=== PATIENT | female | born 1975 | race Caucasian/White ===

== ENCOUNTER 2016-12-30 22:02 | Emergency (ER) | payer OTHER ==
[~2016-12-30] VITALS: Ht 157.4 cm; Wt 52.2 kg
[~2016-12-30 22:02] MED LIST: AURALGAN 15 ML15 ML OT; AZITHROMYC200 MG/5 M PO; BACTRIM DS 8001 TA1 PO; CATAFLAM50 MG PO; DAYPRO600 M1 PO; DEPAKOTE250 MG PO; FLEXERIL10 MG PO; FLONASE ALLERG9.9 ML NS; GOOD NEIGHBOR P10 M1 PO; HYDROCHLOROTHIA25 MG PO; LISINOPRIL HCTZ1 TA1 PO; LISINOPRIL10 MG PO; METFORMIN500 MG PO; NAPROSYN500 MG PO; PROAIR RESPICL90 MCG IH; ROXICET 325 MG/55 ML PO; SINGULAIR10 MG PO; SLOW-K 8MEQ8 MEQ PO; TOBRADEX 0.1%-0.5 ML OPH; ULTRAM50 MG PO; VICODIN 5/500 505 MG PO; ZESTRIL20 MG PO; ZITHROMAX Z PA250 MG PO; ZOFRAN ODT4 MG SL
[2016-12-30] MEDS ORDERED: MEDROL DOSEPAK4 MG PO (23:49)
[2016-12-30] MEDS ORDERED: NORCO 5-325 TA1 EACH PO (23:49)
[2016-12-30] MEDS ORDERED: ROBAXIN500 M1 PO (23:49)
== END 2016-12-31 00:29 | disposition home or self-care (01) ==
LOC: ED 22:02
DX: M25.512 Pain in left shoulder (principal); M62.838 Other muscle spasm; F17.200 Nicotine dependence, unspecified, uncomplicated; Z90.710 Acquired absence of both cervix and uterus; Z79.899 Other long term (current) drug therapy; Z88.0 Allergy status to penicillin; Z88.5 Allergy status to narcotic agent

== ENCOUNTER 2017-03-03 11:56 | Emergency (ER) | payer OTHER ==
[~2017-03-03] VITALS: Ht 157.4 cm; Wt 52.2 kg
[~2017-03-03 11:56] MED LIST changes: +MEDROL DOSEPAK4 MG PO; +NORCO 5-325 TA1 EACH PO; +ROBAXIN500 M1 PO
[2017-03-03] MEDS ORDERED: SEPTDS PO (12:28)
== END 2017-03-03 12:30 | disposition home or self-care (01) ==
LOC: ED 11:56
DX: R59.1 Generalized enlarged lymph nodes (principal); F17.200 Nicotine dependence, unspecified, uncomplicated; F10.10 Alcohol abuse, uncomplicated; Z88.0 Allergy status to penicillin; Z88.6 Allergy status to analgesic agent; Z79.899 Other long term (current) drug therapy; Z90.710 Acquired absence of both cervix and uterus

== ENCOUNTER → 2017-04-03 | Outpatient (CLI) | payer OTHER ==
[~2017-04-03] MED LIST changes: +SEPTDS PO
== END | disposition home or self-care (01) ==
LOC: CT 03-21 11:00
DX: M54.2 Cervicalgia (principal); I10 Essential (primary) hypertension; E11.9 Type 2 diabetes mellitus without complications

== ENCOUNTER → 2017-04-17 | Outpatient (CLI) | payer OTHER | END | disposition home or self-care (01) | LOC: RAD 15:31 | DX: M19.012 Primary osteoarthritis, left shoulder (principal); M54.6 Pain in thoracic spine ==

== ENCOUNTER 2017-05-25 16:50 | Emergency (ER) | payer OTHER ==
[~2017-05-25] VITALS: Ht 157.4 cm; Wt 51.3 kg
[2017-05-25] MEDS ORDERED: MEDROL DOSEPAK4 MG PO (17:23)
[2017-05-25] MEDS ORDERED: CYCLOBENZAPRINE10 MG PO (17:23)
== END 2017-05-25 17:28 | disposition home or self-care (01) ==
LOC: ED 16:50
DX: M54.2 Cervicalgia (principal); F17.200 Nicotine dependence, unspecified, uncomplicated; F10.10 Alcohol abuse, uncomplicated; Z88.0 Allergy status to penicillin; Z88.6 Allergy status to analgesic agent; Z79.899 Other long term (current) drug therapy

== ENCOUNTER 2017-06-01 01:17 | Emergency (ER) | payer OTHER ==
[~2017-06-01] VITALS: Wt 49.9 kg
[~2017-06-01 01:17] MED LIST changes: +CYCLOBENZAPRINE10 MG PO
== END 2017-06-01 02:53 | disposition home or self-care (01) ==
LOC: ED 01:17
DX: J02.8 Acute pharyngitis due to other specified organisms (principal); F17.200 Nicotine dependence, unspecified, uncomplicated; Z88.0 Allergy status to penicillin; Z88.5 Allergy status to narcotic agent

== ENCOUNTER 2017-07-21 14:55 | Emergency (ER) | payer OTHER ==
[~2017-07-21] VITALS: Ht 157.4 cm; Wt 51.3 kg
== END 2017-07-21 15:44 | disposition left against medical advice (07) ==
LOC: ED 14:55
DX: S80.212A Abrasion, left knee, initial encounter (principal); R05 Cough; R09.81 Nasal congestion; Z23 Encounter for immunization; Z88.0 Allergy status to penicillin; Z88.6 Allergy status to analgesic agent; Z79.899 Other long term (current) drug therapy; W26.8XXA Contact with other sharp object(s), not elsewhere classified, initial encounter; Y93.89 Activity, other specified; Y92.89 Other specified places as the place of occurrence of the external cause; Y99.8 Other external cause status

== ENCOUNTER 2017-07-23 20:12 | Emergency (ER) | payer OTHER ==
[~2017-07-23] VITALS: Ht 157.4 cm; Wt 51.3 kg
[2017-07-23] MEDS ORDERED: DIFLUCAN150 MG PO (20:52)
== END 2017-07-23 20:57 | disposition home or self-care (01) ==
LOC: ED 20:12
DX: T19.2XXA Foreign body in vulva and vagina, initial encounter (principal); F17.200 Nicotine dependence, unspecified, uncomplicated; Z90.710 Acquired absence of both cervix and uterus; Z98.890 Other specified postprocedural states; Z88.0 Allergy status to penicillin; Z88.5 Allergy status to narcotic agent; Y92.9 Unspecified place or not applicable

== ENCOUNTER 2017-09-03 13:41 | Emergency (ER) | payer OTHER ==
[~2017-09-03] VITALS: Ht 157.4 cm; Wt 50.8 kg
[~2017-09-03 13:41] MED LIST changes: +DIFLUCAN150 MG PO
== END 2017-09-03 14:26 | disposition home or self-care (01) ==
LOC: ED 13:41
DX: T19.2XXA Foreign body in vulva and vagina, initial encounter (principal); Z90.710 Acquired absence of both cervix and uterus; Z79.899 Other long term (current) drug therapy; Z88.0 Allergy status to penicillin; Z88.5 Allergy status to narcotic agent; Y92.9 Unspecified place or not applicable

== ENCOUNTER 2017-09-10 02:40 | Emergency (ER) | payer OTHER ==
[~2017-09-10] VITALS: Ht 157.4 cm; Wt 49.9 kg
[2017-09-10] MEDS ORDERED: NAPROSYN500 MG PO (04:07)
== END 2017-09-10 04:35 | disposition home or self-care (01) ==
LOC: ED 02:40
DX: M25.572 Pain in left ankle and joints of left foot (principal); F17.200 Nicotine dependence, unspecified, uncomplicated; Z90.710 Acquired absence of both cervix and uterus; Z79.899 Other long term (current) drug therapy; Z88.0 Allergy status to penicillin; Z88.5 Allergy status to narcotic agent; X50.1XXA Overexertion from prolonged static or awkward postures, initial encounter; Y93.89 Activity, other specified; Y92.099 Unspecified place in other non-institutional residence as the place of occurrence of the external cause; Y99.9 Unspecified external cause status

== ENCOUNTER 2017-10-14 02:24 | Emergency (ER) | payer OTHER ==
[~2017-10-14] VITALS: Ht 157.4 cm; Wt 49.4 kg
== END 2017-10-14 03:07 | disposition home or self-care (01) ==
LOC: ED 02:24
DX: S62.102A Fracture of unspecified carpal bone, left wrist, initial encounter for closed fracture (principal); M67.432 Ganglion, left wrist; Z88.0 Allergy status to penicillin; Z88.6 Allergy status to analgesic agent; Z79.899 Other long term (current) drug therapy; X58.XXXA Exposure to other specified factors, initial encounter; Y93.89 Activity, other specified; Y92.89 Other specified places as the place of occurrence of the external cause; Y99.8 Other external cause status

== ENCOUNTER 2017-11-08 17:11 | Emergency (ER) | payer OTHER ==
[~2017-11-08] VITALS: Wt 56.7 kg
[2017-11-08 17:36] LABS: BILIRUBIN NEGATIVE (NEGATIVE); BLOOD NEGATIVE (NEGATIVE); CLARITY CLEAR (CLEAR); COLOR YELLOW (YELLOW); GLUCOSE NEGATIVE (NEGATIVE); KETONE NEGATIVE (NEGATIVE); LEUKO ESTERASE TRACE (NEGATIVE); NITRITE NEGATIVE (NEGATIVE); SPECIFIC GRAVITY <= 1.005 (1.005-1.030); UROBILINOGEN 0.2 E.U./dl (0.2-1.0)
[2017-11-08] MEDS ORDERED: DIFLUCAN150 MG PO (17:39)
[2017-11-08] MEDS ORDERED: SEPTDS PO (17:39)
[2017-11-08 17:44] LABS: BACTERIA TRACE; EPITHELIAL CELLS 0-2
== END 2017-11-08 17:50 | disposition home or self-care (01) ==
LOC: ED 17:11
PROVIDERS: Emergency Medicine
DX: T19.2XXA Foreign body in vulva and vagina, initial encounter (principal); L73.9 Follicular disorder, unspecified; F17.200 Nicotine dependence, unspecified, uncomplicated; Z88.0 Allergy status to penicillin; Z88.5 Allergy status to narcotic agent; Z79.899 Other long term (current) drug therapy; Z90.710 Acquired absence of both cervix and uterus; X58.XXXA Exposure to other specified factors, initial encounter; Y93.89 Activity, other specified; Y92.89 Other specified places as the place of occurrence of the external cause; Y99.8 Other external cause status

== ENCOUNTER → 2018-05-05 | Outpatient (CLI) | payer OTHER ==
[~2018-05-05] MED LIST changes: +OMEPRAZOLE40 MG PO
== END | disposition home or self-care (01) ==
LOC: LAB 15:55 → MAMMO 16:00
DX: Z12.31 Encounter for screening mammogram for malignant neoplasm of breast (principal); L81.8 Other specified disorders of pigmentation

== ENCOUNTER 2018-10-01 21:12 | Emergency (ER) | payer OTHER ==
[~2018-10-01] VITALS: Ht 157.4 cm; Wt 54.4 kg
[~2018-10-01 21:12] MED LIST changes: -OMEPRAZOLE40 MG PO
[2018-10-01] MEDS ORDERED: OMEPRAZOLE40 MG PO (21:16)
== END 2018-10-01 22:55 | disposition home or self-care (01) ==
LOC: ED 21:12
DX: S62.636A Displaced fracture of distal phalanx of right little finger, initial encounter for closed fracture (principal); S01.01XA Laceration without foreign body of scalp, initial encounter; F17.200 Nicotine dependence, unspecified, uncomplicated; Z88.0 Allergy status to penicillin; Z88.6 Allergy status to analgesic agent; Z79.899 Other long term (current) drug therapy; Z98.890 Other specified postprocedural states; Y00.XXXA Assault by blunt object, initial encounter; Y93.89 Activity, other specified; Y92.89 Other specified places as the place of occurrence of the external cause; Y99.8 Other external cause status

== ENCOUNTER 2018-12-02 16:21 | Emergency (ER) | payer OTHER ==
[~2018-12-02] VITALS: Ht 157.4 cm; Wt 56.7 kg
--- NOTE | ~2018-12-02 | EKG ---
[place], [place] ELECTROCARDIOGRAM REPORT NAME: VELMA OCHOA UNIT #: [id number] ROOM: DOCTOR: YAYO DRAFT REPORT BIRTHDATE: [birth year] [facility] Test Date: 2018-12-02 Test Time: 17:15:19 Pat Name: VELMA OCHOA Department: Room: Gender: F [employer]: : 1975 Requested By: MANSOOR WINSLOW Order Number: [id number] Reading MD: Han Grijalva MD Measurements Intervals Bradley Rate: 55 P: 58 SD: 158 QRS: 49 QRSD: 79 T: 45 QT: 418 QTc: 400 Interpretive Statements Sinus rhythm Probable left atrial enlargement RSR' in V1 or V2, probably normal variant ST elev, probable normal early repol pattern Electronically Signed On 12-03-2018 8:15:45 PDT by Han Grijalva MD CM:EKGRPT:ELECTROCARDIOGRAM REPORT 1715 [id number] MANSOOR PATEL DRAFT REPORT MANSOOR WINSLOW DO
[~2018-12-02 16:21] MED LIST changes: +OMEPRAZOLE40 MG PO
[2018-12-02 17:13] LABS: BASO # 0.1 10*3/uL (0.0-0.1); BASO % 0.6 % (0.0-1.0); EOS # 0.2 10*3/uL (0.0-0.4); EOS % 2.3 % (1.0-4.0); HEMATOCRIT 45.7 % (37.0-47.0); HEMOGLOBIN 15.5 g/dl (12.0-16.0); LYMPH # 2.9 10*3/uL (1.3-4.4); LYMPH % 28.9 % (27.0-41.0); MEAN CELL VOLUME 97.9 fl (81.0-99.0); MEAN CORPUSCULAR HGB 33.2 pg (27.0-31.0); MEAN CORPUSCULAR HGB CONC 33.9 g/dl (33.0-37.0); MONO # 0.6 10*3/uL (0.1-1.0); MONO % 6.2 % (3.0-9.0); NEUT # 6.1 10*3/uL (2.3-7.9); NEUT % 61.6 % (47.0-73.0); PLATELET COUNT AUTOMATED 217 10*3/uL (130-400); RED BLOOD COUNT 4.67 10*6/uL (4.10-5.10); RED CELL DISTRI WIDTH 13.2 % (0-14.5); WHITE BLOOD COUNT 9.9 10*3/uL (4.8-10.8)
[2018-12-02 17:31] LABS: ACT PARTIAL THROMBO TIME 25.8 SECONDS (20.0-32.1); ALBUMIN 3.4 gm/dl (3.1-4.5); ALKALINE PHOSPHATASE 75 U/L (45-117); BUN 11 mg/dl (7-24); CHLORIDE 106 mmol/L (98-107); CREATININE 0.69 mg/dL (0.55-1.02); INTERNATIONAL NORM RATIO 0.9 (2.0-3.5); LIPASE 162 U/L (73-393); POTASSIUM 4.1 mmol/L (3.5-5.1); SGOT/AST 12 IU/L (3-35); SGPT/ALT 14 U/L (12-78); SODIUM 137 mmol/L (136-145)
[2018-12-02 17:37] LABS: TROPONIN I < 0.015 ng/ml (<0.045)
[2018-12-02 17:54] LABS: BILIRUBIN NEGATIVE (NEGATIVE); BLOOD NEGATIVE (NEGATIVE); CLARITY SL CLOUDY (CLEAR); COLOR YELLOW (YELLOW); GLUCOSE NEGATIVE (NEGATIVE); KETONE NEGATIVE (NEGATIVE); LEUKO ESTERASE NEGATIVE (NEGATIVE); NITRITE NEGATIVE (NEGATIVE); PH 6.5 (5.0-9.0); UROBILINOGEN 0.2 E.U./dl (0.2-1.0)
[2018-12-02 18:05] LABS: EPITHELIAL CELLS 20-30
== END 2018-12-02 18:54 | disposition home or self-care (01) ==
LOC: ED 16:21
PROVIDERS: Emergency Medicine
DX: R51 Headache (principal); R07.9 Chest pain, unspecified; R10.9 Unspecified abdominal pain; R11.0 Nausea; R19.7 Diarrhea, unspecified; E11.65 Type 2 diabetes mellitus with hyperglycemia; J45.909 Unspecified asthma, uncomplicated; F17.200 Nicotine dependence, unspecified, uncomplicated; Z90.710 Acquired absence of both cervix and uterus; Z88.0 Allergy status to penicillin; Z88.5 Allergy status to narcotic agent; Z79.899 Other long term (current) drug therapy

== ENCOUNTER 2019-03-19 01:56 | Emergency (ER) | payer OTHER ==
[~2019-03-19] VITALS: Ht 157.4 cm; Wt 45.4 kg
[2019-03-19] MEDS ORDERED: PROAIR HFA8.5 GM INH (02:08)
[2019-03-19] MEDS ORDERED: PSEUDOEPHEDRINE60 M2 PO (02:44)
[2019-03-19] MEDS ORDERED: FLONASE ALLERG9.9 ML NAS (02:47)
[2019-03-19] MEDS ORDERED: ZITHROMAX250 MG PO (02:47)
== END 2019-03-19 03:33 | disposition home or self-care (01) ==
LOC: ED 01:56
DX: H92.03 Otalgia, bilateral (principal); J45.909 Unspecified asthma, uncomplicated; G89.29 Other chronic pain; I10 Essential (primary) hypertension; E11.9 Type 2 diabetes mellitus without complications; F17.200 Nicotine dependence, unspecified, uncomplicated; Z88.0 Allergy status to penicillin; Z88.5 Allergy status to narcotic agent; Z79.899 Other long term (current) drug therapy; Z86.73 Personal history of transient ischemic attack (TIA), and cerebral infarction without residual deficits

== ENCOUNTER 2019-05-07 11:17 | Emergency (ER) | payer OTHER ==
[~2019-05-07] VITALS: Ht 157.4 cm; Wt 54.4 kg
[~2019-05-07 11:17] MED LIST changes: +FLONASE ALLERG9.9 ML NAS; +PROAIR HFA8.5 GM INH; +PSEUDOEPHEDRINE60 M2 PO; +ZITHROMAX250 MG PO
== END 2019-05-07 14:01 | disposition home or self-care (01) ==
LOC: ED 11:17
DX: S93.401A Sprain of unspecified ligament of right ankle, initial encounter (principal); J45.909 Unspecified asthma, uncomplicated; E11.9 Type 2 diabetes mellitus without complications; G40.909 Epilepsy, unspecified, not intractable, without status epilepticus; I10 Essential (primary) hypertension; F17.200 Nicotine dependence, unspecified, uncomplicated; Z88.0 Allergy status to penicillin; Z88.5 Allergy status to narcotic agent; Z79.899 Other long term (current) drug therapy; Z79.2 Long term (current) use of antibiotics; Z90.710 Acquired absence of both cervix and uterus; Z86.73 Personal history of transient ischemic attack (TIA), and cerebral infarction without residual deficits; W10.8XXA Fall (on) (from) other stairs and steps, initial encounter; Y93.89 Activity, other specified; Y92.89 Other specified places as the place of occurrence of the external cause; Y99.8 Other external cause status

== ENCOUNTER 2019-09-06 17:47 | Emergency (ER) | payer OTHER ==
[~2019-09-06] VITALS: Ht 157.4 cm; Wt 56.7 kg
[2019-09-06 18:15] LABS: BASO # 0.1 10*3/uL (0.0-0.1); BASO % 0.7 % (0.0-1.0); EOS # 0.2 10*3/uL (0.0-0.4); EOS % 1.7 % (1.0-4.0); HEMATOCRIT 44.2 % (37.0-47.0); LYMPH # 4.3 10*3/uL (1.3-4.4); LYMPH % 35.4 % (27.0-41.0); MEAN CELL VOLUME 96.7 fl (81.0-99.0); MEAN CORPUSCULAR HGB 32.8 pg (27.0-31.0); MEAN CORPUSCULAR HGB CONC 33.9 g/dl (33.0-37.0); MEAN PLATELET VOLUME 11.4 fl (9.6-12.3); MONO # 0.7 10*3/uL (0.1-1.0); MONO % 5.6 % (3.0-9.0); NEUT # 6.8 10*3/uL (2.3-7.9); NEUT % 56.1 % (47.0-73.0); PLATELET COUNT AUTOMATED 220 10*3/uL (130-400); RED BLOOD COUNT 4.57 10*6/uL (4.10-5.10); RED CELL DISTRI WIDTH 13.1 % (0-14.5); WHITE BLOOD COUNT 12.1 10*3/uL (4.8-10.8)
[2019-09-06 18:27] LABS: ACT PARTIAL THROMBO TIME 25.5 SECONDS (20.0-32.1)
[2019-09-06 18:32] LABS: ALBUMIN 3.9 gm/dl (3.1-4.5); ALKALINE PHOSPHATASE 68 U/L (45-117); BUN 13 mg/dl (7-24); CHLORIDE 102 mmol/L (98-107); CREATININE 0.69 mg/dL (0.55-1.02); POTASSIUM 3.5 mmol/L (3.5-5.1); SGOT/AST 14 IU/L (3-35); SGPT/ALT 20 U/L (12-78); SODIUM 133 mmol/L (136-145); TOTAL PROTEIN 7.8 gm/dL (6.4-8.2)
[2019-09-06 18:37] LABS: TROPONIN I < 0.015 ng/ml (<0.045)
== END 2019-09-06 19:50 | disposition left against medical advice (07) ==
LOC: ED 17:47
PROVIDERS: Nurse Practitioner Family
DX: R07.9 Chest pain, unspecified (principal); R06.02 Shortness of breath; R53.1 Weakness; R20.2 Paresthesia of skin; R20.0 Anesthesia of skin; I10 Essential (primary) hypertension; G40.909 Epilepsy, unspecified, not intractable, without status epilepticus; J45.909 Unspecified asthma, uncomplicated; E11.9 Type 2 diabetes mellitus without complications; Z79.899 Other long term (current) drug therapy; Z88.0 Allergy status to penicillin; Z88.6 Allergy status to analgesic agent

== ENCOUNTER 2019-10-11 08:00 | Emergency (ER) | payer OTHER ==
[~2019-10-11] VITALS: Ht 157.4 cm; Wt 56.7 kg
== END 2019-10-11 09:22 | disposition home or self-care (01) ==
LOC: ED 08:00
DX: T19.2XXA Foreign body in vulva and vagina, initial encounter (principal); F17.200 Nicotine dependence, unspecified, uncomplicated; Z88.0 Allergy status to penicillin; Z88.6 Allergy status to analgesic agent; Z79.899 Other long term (current) drug therapy; X58.XXXA Exposure to other specified factors, initial encounter; Y93.89 Activity, other specified; Y92.89 Other specified places as the place of occurrence of the external cause; Y99.8 Other external cause status

== ENCOUNTER → 2020-01-13 | Outpatient (CLI) | payer OTHER | END | disposition home or self-care (01) | LOC: COVID19 00:58 | PROVIDERS: ATTEND Internal Medicine | DX: B34.9 Viral infection, unspecified (principal); Z20.828 Contact with and (suspected) exposure to other viral communicable diseases ==

== ENCOUNTER 2020-06-30 08:45 | Emergency (ER) | payer OTHER ==
[~2020-06-30] VITALS: Ht 157.4 cm; Wt 67.4 kg
== END 2020-06-30 11:40 | disposition home or self-care (01) ==
LOC: ED 08:45
DX: S93.401A Sprain of unspecified ligament of right ankle, initial encounter (principal); Z88.0 Allergy status to penicillin; Z88.5 Allergy status to narcotic agent; Z79.899 Other long term (current) drug therapy; Z98.890 Other specified postprocedural states; Z90.711 Acquired absence of uterus with remaining cervical stump; X58.XXXA Exposure to other specified factors, initial encounter; Y93.89 Activity, other specified; Y92.89 Other specified places as the place of occurrence of the external cause; Y99.8 Other external cause status

== ENCOUNTER 2020-09-06 09:27 | Emergency (ER) | payer OTHER ==
[~2020-09-06] VITALS: Wt 68.0 kg
== END 2020-09-06 11:26 | disposition home or self-care (01) ==
LOC: ED 09:27
DX: S69.91XA Unspecified injury of right wrist, hand and finger(s), initial encounter (principal); Z88.0 Allergy status to penicillin; Z88.5 Allergy status to narcotic agent; Z79.899 Other long term (current) drug therapy; X58.XXXA Exposure to other specified factors, initial encounter; Y93.89 Activity, other specified; Y92.89 Other specified places as the place of occurrence of the external cause; Y99.8 Other external cause status

== ENCOUNTER → 2020-12-20 | Outpatient (CLI) | payer OTHER | END | disposition home or self-care (01) | LOC: COVID19 18:52 | PROVIDERS: ATTEND Family Medicine | DX: Z11.52 Encounter for screening for COVID-19 (principal) ==

== ENCOUNTER → 2021-03-19 | Outpatient (CLI) | payer OTHER | END | disposition home or self-care (01) | LOC: MAMMO 13:00 | PROVIDERS: ATTEND Internal Medicine | DX: Z12.31 Encounter for screening mammogram for malignant neoplasm of breast (principal) ==

== ENCOUNTER 2021-11-09 11:59 | Emergency (ER) | payer OTHER ==
[~2021-11-09] VITALS: Wt 62.1 kg
== END 2021-11-09 16:03 | disposition home or self-care (01) ==
LOC: ED 11:59
DX: F07.81 Postconcussional syndrome (principal); Z88.0 Allergy status to penicillin; Z88.8 Allergy status to other drugs, medicaments and biological substances; Z79.899 Other long term (current) drug therapy; F17.200 Nicotine dependence, unspecified, uncomplicated; Z90.710 Acquired absence of both cervix and uterus

== ENCOUNTER 2022-03-08 13:53 | Emergency (ER) | payer OTHER ==
[~2022-03-08] VITALS: Ht 157.4 cm; Wt 52.2 kg
== END 2022-03-08 16:33 | disposition home or self-care (01) ==
LOC: ED 13:53
DX: S53.401A Unspecified sprain of right elbow, initial encounter (principal); Z88.0 Allergy status to penicillin; Z88.6 Allergy status to analgesic agent; Z79.899 Other long term (current) drug therapy; Z90.710 Acquired absence of both cervix and uterus; W22.8XXA Striking against or struck by other objects, initial encounter; Y93.89 Activity, other specified; Y92.89 Other specified places as the place of occurrence of the external cause; Y99.8 Other external cause status

== ENCOUNTER 2022-03-27 08:30 | Emergency (ER) | payer OTHER ==
[~2022-03-27] VITALS: Ht 157.4 cm; Wt 49.9 kg
== END 2022-03-27 12:00 | disposition left against medical advice (07) ==
LOC: ED 08:30
DX: J10.1 Influenza due to other identified influenza virus with other respiratory manifestations (principal); Z88.0 Allergy status to penicillin; Z88.5 Allergy status to narcotic agent; Z90.710 Acquired absence of both cervix and uterus; Z98.890 Other specified postprocedural states; F10.90 Alcohol use, unspecified, uncomplicated; Z20.822 Contact with and (suspected) exposure to COVID-19

== ENCOUNTER 2022-05-27 17:34 | Emergency (ER) | payer OTHER ==
[~2022-05-27] VITALS: Wt 63.5 kg
== END 2022-05-27 20:16 | disposition home or self-care (01) ==
LOC: ED 17:34
DX: S82.62XA Displaced fracture of lateral malleolus of left fibula, initial encounter for closed fracture (principal); I10 Essential (primary) hypertension; J45.909 Unspecified asthma, uncomplicated; E11.9 Type 2 diabetes mellitus without complications; Z88.0 Allergy status to penicillin; Z88.5 Allergy status to narcotic agent; Z90.710 Acquired absence of both cervix and uterus; Z98.890 Other specified postprocedural states; W01.0XXA Fall on same level from slipping, tripping and stumbling without subsequent striking against object, initial encounter; Y93.89 Activity, other specified; Y92.89 Other specified places as the place of occurrence of the external cause; Y99.8 Other external cause status

== ENCOUNTER → 2022-05-29 | Outpatient (CLI) | payer OTHER | END | disposition home or self-care (01) | LOC: RAD 09:45 | PROVIDERS: ATTEND Orthopaedic Surgery | DX: S82.62XA Displaced fracture of lateral malleolus of left fibula, initial encounter for closed fracture (principal); X58.XXXA Exposure to other specified factors, initial encounter; Y93.89 Activity, other specified; Y92.89 Other specified places as the place of occurrence of the external cause; Y99.8 Other external cause status ==

== ENCOUNTER → 2022-06-05 | Outpatient (CLI) | payer OTHER | END | disposition home or self-care (01) | LOC: ORTHO 00:37 | PROVIDERS: ATTEND Orthopaedic Surgery | DX: S82.62XD Displaced fracture of lateral malleolus of left fibula, subsequent encounter for closed fracture with routine healing (principal); X58.XXXD Exposure to other specified factors, subsequent encounter ==

== ENCOUNTER → 2022-06-12 | Outpatient (CLI) | payer OTHER | END | disposition home or self-care (01) | LOC: ORTHO 01:42 | PROVIDERS: ATTEND Orthopaedic Surgery | DX: S82.62XD Displaced fracture of lateral malleolus of left fibula, subsequent encounter for closed fracture with routine healing (principal); X58.XXXD Exposure to other specified factors, subsequent encounter ==

== ENCOUNTER → 2022-06-26 | Outpatient (CLI) | payer OTHER | END | disposition home or self-care (01) | LOC: ORTHO 00:30 | PROVIDERS: ATTEND Orthopaedic Surgery | DX: S82.62XD Displaced fracture of lateral malleolus of left fibula, subsequent encounter for closed fracture with routine healing (principal); X58.XXXD Exposure to other specified factors, subsequent encounter ==

== ENCOUNTER → 2022-07-10 | Outpatient (CLI) | payer OTHER | END | disposition home or self-care (01) | LOC: ORTHO 00:44 | PROVIDERS: ATTEND Orthopaedic Surgery | DX: S82.62XD Displaced fracture of lateral malleolus of left fibula, subsequent encounter for closed fracture with routine healing (principal); M25.472 Effusion, left ankle; X58.XXXD Exposure to other specified factors, subsequent encounter ==

== ENCOUNTER → 2022-12-17 | Outpatient (CLI) | payer OTHER ==
[2022-12-17 09:31] LABS: BUN 12 mg/dl (9-23); CHLORIDE 99 mmol/L (98-107); POTASSIUM 4.2 mmol/L (3.4-5.1)
== END | disposition home or self-care (01) ==
LOC: LAB 08:41
PROVIDERS: ATTEND Internal Medicine
DX: E11.9 Type 2 diabetes mellitus without complications (principal)

== ENCOUNTER → 2023-04-21 | Outpatient (CLI) | payer OTHER | END | disposition home or self-care (01) | LOC: MAMMO 08:31 | PROVIDERS: ATTEND Internal Medicine | DX: Z12.31 Encounter for screening mammogram for malignant neoplasm of breast (principal); R10.30 Lower abdominal pain, unspecified; Z90.710 Acquired absence of both cervix and uterus ==

== ENCOUNTER 2024-11-16 19:08 | Emergency (ER) | payer OTHER ==
[~2024-11-16] VITALS: Ht 157.4 cm; Wt 65.8 kg
[2024-11-16] MEDS ORDERED: ASPIRIN CHEWABL81 MG PO (19:19)
[2024-11-16] MEDS ORDERED: METHOCARBAMOL 500 MG TAB PO ONE (21:05)
[2024-11-16] MEDS ORDERED: NAPROXEN250 MG PO (21:10)
[2024-11-16] MEDS ORDERED: METHOCARBAMOL500 M1 PO (21:10)
== END 2024-11-16 21:23 | disposition home or self-care (01) ==
LOC: ED 19:08
DX: S39.012A Strain of muscle, fascia and tendon of lower back, initial encounter (principal); Z88.0 Allergy status to penicillin; Z88.5 Allergy status to narcotic agent; Z79.899 Other long term (current) drug therapy; Z79.82 Long term (current) use of aspirin; Z90.710 Acquired absence of both cervix and uterus; W09.8XXA Fall on or from other playground equipment, initial encounter; Y93.44 Activity, trampolining; Y92.89 Other specified places as the place of occurrence of the external cause; Y99.8 Other external cause status